=== PATIENT | male | born 1935 | race Caucasian/White ===

== ENCOUNTER 2017-01-23 10:42 | Inpatient (IN) | payer MEDICARE, BC ==
--- NOTE | ~2017-01-23 | DS ---
Discharge Summary [address] [place]. [address] NAME: KRYSTA HEARN : 33 STATUS : DIS IN PAT#: [id number] AGE: 81 ADM/REG DATE : 01/23/17 MR#: [id number] REPORT SERV DATE: 02/03/17 DICTATED BY: JR. WILSON WILLIAM JOHN DATE: 02/02/17 REPORT STATUS : Draft TRANSCRIBED BY: MODL DATE: 02/02/17 ADMISSION DATE: 01/23/2017 DISCHARGE DATE: 02/02/2017 DISCHARGE DIAGNOSES: Include: 1. Acute on chronic systolic and diastolic heart failure. 2. Dilated cardiomyopathy with biventricular failure. 3. Possible aspiration. 4. Acute bronchitis. 5. Parkinson's disease. 6. Chronic atrial fibrillation. 7. Hypoxic respiratory failure secondary to acute on chronic systolic and diastolic heart failure. OPERATIONS, PROCEDURES AND TREATMENTS: Include: 1. Chest x-ray done 01/23/2017, which showed cardiomegaly with mild failure. 2. CT of the chest done 01/24/2017, which showed bibasilar atelectasis or infiltrate possibly due to pneumonia. There was slight cardiomegaly and distended esophagus with fluid and minimal air. CT of the abdomen and pelvis showed no definite acute abnormality within the abdomen or pelvis. There were bilateral adrenal adenomas. There was calcified atherosclerosis with minimal abdominal aortic aneurysm. There was right hip prosthesis. Diffuse skeletal demineralization and minimal metallic foreign body in the lumen of the distal loop of the small bowel of uncertain significance. 3. Echocardiogram done 01/24/2017, which showed severe left ventricular dysfunction of 25% with left atrium and ventricle dilated. There was an apical akinesis and mild dyskinesis. Right ventricular size was moderately impaired. There was mild-to- moderate mitral regurgitation and aortic regurgitation. 4. Chest x-ray done 01/26/2017 showed diminished lung volumes with bibasilar mild fibrosis and/or atelectasis. 5. Chest x-ray done 01/29/2017, which showed shallow inspiration with bibasilar linear atelectasis and pulmonic vascular prominence. CONSULTING PHYSICIANS: Include Dr. Anne of Cardiology. DISCHARGE MEDICATIONS: Include: 1. Aspirin 81 mg orally daily. 2. Lipitor 80 mg orally daily. 3. Sinemet 25/100, two tablets at 0830, 1200, 1530, and 1830. 4. Coreg 6.25 mg orally twice a day. 5. Vitamin B12 1000 mcg orally daily. 6. Lasix 20 mg orally daily. 7. Guaifenesin LA 600 mg three times a day. 8. Protonix 40 mg orally daily. 9. Paxil 20 mg orally daily. 10.MiraLAX one packet daily. 11.Ramipril 5 mg daily. Discharge Summary [address] [place]. [address] NAME: KRYSTA HEARN : 33 STATUS : DIS IN PAT#: [id number] AGE: 81 ADM/REG DATE : 01/23/17 MR#: [id number] REPORT SERV DATE: 02/03/17 DICTATED BY: JR. WILSON WILLIAM JOHN DATE: 02/02/17 REPORT STATUS : Draft TRANSCRIBED BY: BAILEY DATE: 02/02/17 12.Aldactone 12.5 mg daily. 13.Coumadin per sliding scale. 14.Prednisone 30 mg orally daily through 02/03/2017, 20 mg orally daily from 02/04/2017 through 02/05/2017, 10 mg daily from 02/06/2017 through 02/07/2017. 15.Pulmicort Respules 1 mg inhaled twice a day. 16.DuoNeb 3 mL every four hours while awake. 17.Colace 100 mg twice a day as needed. HOSPITAL COURSE: The patient is an 81-year-old male presented to emergency room on 01/23/2017 because of severe weakness, cough, phlegm production, and bilateral lower extremity edema and chest congestion. According to the patient's daughter at that time, he was unable to walk periodically, be unable to lay flat. There were no fevers or chills or headache. On initial exam, his temperature was 98, heart rate was 106, respiratory rate 22, blood pressure 197/100, saturation 90% on room air. Exam was remarkable for coarse breath sounds bilaterally with decreased respiratory effort and positive cough. Initial laboratory significant for BUN of 39, creatinine 1.05. White count was normal at 7.8. INR was 3.5. Urinalysis had 40 red blood cells, but only 5 white blood cells. Chest x-ray as detailed above. EKG showed atrial fibrillation, rate of 84 without acute findings. The patient was admitted to [facility]. He had an echocardiogram which is detailed above. This represented a significant decline from prior echocardiogram and Cardiology was consulted. Upon further investigation, it appears the patient had a prior echo previous to the comparison echocardiogram with similar findings to this. Therefore, it is unclear whether this is actually a decline in function. Regardless the patient was diuresed with Lasix, he was started on MIL inhibitor and beta blockade as well as Aldactone and diuresed nicely. By discharge, the patient did not feel short of breath and was on 2-3 L of oxygen by nasal cannula. Regarding possible aspiration, the patient had a choking episode during the hospitalization. He was evaluated on 02/01/2017 by speech and language pathology and a bedside swallow evaluation was inconclusive. Therefore, a modified barium swallow was scheduled for today and assuming the patient has goals, we will plan to discharge the patient to [facility] today with modified diet as recommended. Next, regarding acute bronchitis, the patient was started on a steroid taper which he responded to well by discharge. The patient had no wheezing or crackles. Regarding Parkinson disease, the patient remains on his carbidopa and levodopa. Regarding chronic atrial fibrillation, the patient is on Coumadin. At discharge, his INR was 2.2. Regarding hypoxia, the patient underwent oxygen desaturation study, qualified for oxygen, which is detailed in the chart. The patient will be discharged to [facility] today. If the modified barium swallow is reasonable, the patient can be transported today. Discharge Summary [address] [place]. [address] NAME: KRYSTA HEARN : 33 STATUS : DIS IN PAT#: [id number] AGE: 81 ADM/REG DATE : 01/23/17 MR#: [id number] REPORT SERV DATE: 02/03/17 DICTATED BY: JR. WILSON WILLIAM JOHN DATE: 02/02/17 REPORT STATUS : Draft TRANSCRIBED BY: BAILEY DATE: 02/02/17 FOLLOWUP ISSUES: 1. Recommend speech and language pathology for further assistance. 2. Physical therapy. 3. For discharge exam and laboratory, please see daily progress note. DISCHARGE DIET: Will depend on the modified barium swallow. ACTIVITY: As tolerated. This discharge took 38 minutes for patient encounter, coordination of care and documentation. DICTATED BY: Good Wilson Jr, MD WJF/BAILEY Good Wilson Jr, MD / [id number] CC: Good Wilson Jr, MD
--- NOTE | ~2017-01-23 | HP ---
History And Physical [address] [place]. [address] NAME: KRYSTA HEARN : 33 STATUS : ADM IN [facility]#: [id number] AGE: 81 ADM/REG DATE : 01/23/17 MR#: [id number] REPORT SERV DATE: 01/23/17 DICTATED BY: ALISA OTERO DATE: 01/23/17 REPORT STATUS : Draft TRANSCRIBED BY: MODMary Kate DATE: 01/23/17 DATE OF ADMISSION: 01/23/2017 HISTORY OF PRESENT ILLNESS: This is an 81-year-old male who was brought in to [facility] emergency room by his daughter because of severe weakness, cough with some phlegm production, bilateral lower extremity edema, chest congestion. The patient unable to walk according to patient's daughter. He was periodically unable to lay flat, but there are times that he is able to lay flat. He has dementia, but his confusion was worsening. No fever. No chills. No headache. The patient is constipated for the last two weeks. Very small bowel movements according to daughter and the patient. No abdominal pain. No rash. All 14-point review of systems done and negative except what is stated in the history of present illness. PAST MEDICAL HISTORY: Very extensive. The patient has history of Parkinson disease and he saw Dr. Davila two weeks ago. Because of the concern of lower extremity swelling, Dr. Davila did a bilateral lower extremity duplex ultrasound which did not show any evidence of deep vein thrombosis, as well as the patient was already seen today by emergency room physician, Dr. Red, who gave him Lasix 40 mg and gave him intravenous Rocephin as well, and also one dose of clonidine. The patient has a past medical history of coronary artery disease, status post stent placement in the past, history of congestive heart failure with ejection fraction of 35%-40% in 2014, history of chronic systolic heart failure, history of ischemic cardiomyopathy, history of ME in 2001, advanced Parkinson disease, history of chronic pelvic fracture in 2014, history of atrial fibrillation. He was taken off Coumadin before, but then his Coumadin was restarted after he had a TIA recently at [facility]. It was decided that the patient needs to be on Coumadin per his billing auditor, Dr. Burris. The patient also was a fall risk. This was the reason the Coumadin was discontinued previously, but last time after TIA, billing auditor made the decision to restart Coumadin and the patient's daughter is aware about fall risk. They want the patient to be on Coumadin. History of pulmonary embolism in the past, depression, gastroesophageal reflux disease, elevated cholesterol, history of prostate cancer in 1992, status post surgery and radiation, history of dementia, history of Lyme disease, history of chronic urinary tract retention, history of right footdrop. PAST SURGICAL HISTORY: Includes hernia surgery, right hip surgery, basal cell carcinoma, wide resection of the right ear, PEG tube earlier in 2014. SOCIAL HISTORY: He lives with his daughter. He has two daughters. He is a since 04/2014. He ambulates with a walker along with family help. He is retired from [employer]. No tobacco abuse. No alcohol. FAMILY HISTORY: Positive for diabetes, heart disease, and COPD. ALLERGIES: NO KNOWN DRUG ALLERGIES. HOME MEDICATIONS: Include albuterol two puffs inhaled three times daily p.r.n., Lipitor 80 History And Physical [address] [address] NAME: KRYSTA HEARN : 33 STATUS : ADM IN [facility]#: [id number] AGE: 81 ADM/REG DATE : 01/23/17 MR#: [id number] REPORT SERV DATE: 01/23/17 DICTATED BY: ALISA OTERO DATE: 01/23/17 REPORT STATUS : Draft TRANSCRIBED BY: BAILEY DATE: 01/23/17 mg a day, carbidopa/levodopa two tablets p.o. four times a day, vitamin B12 at 1000 mg daily, Evangelina 180 mg a day, Lasix 20 mg a day, omeprazole 20 mg a day, paroxetine 20 mg a day, potassium chloride 10 mEq daily. Coumadin 10 mg on Monday, Monday, Monday, and 5 mg on the other days of the week. PHYSICAL EXAMINATION: GENERAL: Well-nourished, well-developed male, not in acute distress, resting quietly. VITAL SIGNS: Initially, his blood pressure was 197/107 in the emergency room, then later it became, when I saw the patient, 165/100; temperature 98; heart rate like 106 initially, then became 84; respiratory rate 22; oxygen saturation was 90 on room air. HEENT: Head, atraumatic, normocephalic. Conjunctivae clear. Pupils are equal and reactive to light and accommodation. Extraocular muscles are intact. NECK: Supple. Trachea is midline. No supraclavicular or cervical lymphadenopathy. LUNGS: Coarse breath sounds bilaterally with decreased respiratory effort and positive cough. CARDIOVASCULAR SYSTEM: Regular rate and rhythm. Point of maximal impulse not displaced. ABDOMEN: Soft, nontender, nondistended. Positive normoactive bowel sounds. No organomegaly. EXTREMITIES: No clubbing, no cyanosis. Trace edema. NEUROLOGIC: He is awake. He is alert. He is disoriented in time and place. Muscle strength is 5/5 bilaterally on upper and lower extremities. There is no cogwheel rigidity. PSYCHIATRIC: Normal mood and affect. LABORATORY RESULTS: Sodium 140, potassium 4.2, chloride 107, carbon dioxide 27, BUN 39, creatinine 1.05. Troponin 0.05. Blood sugar 127. White count 7.8, hemoglobin 13.2, hematocrit 40.7, and platelet count 245. INR 3.5, PT 34.9. Urinalysis showed large amount of blood, 40 red blood cells, and only 5 white blood cells with moderate bacteria. BNP was 2943. Chest x-ray, cardiomegaly with mild congestive heart failure pattern. EKG: EKG showed atrial fibrillation with a rate of 84, left axis deviation, inferior infarction of undetermined age. ASSESSMENT: This is an 81-year-old male with a past medical history of congestive heart failure, ejection fraction 35%-40% in 2015, history of atrial fibrillation, history of pulmonary embolism in the past, history of Parkinson disease and dementia, presented with; 1. Acute congestive heart failure exacerbation, acute on chronic systolic congestive heart failure. 2. Hypertension. 3. Hematuria. No evidence of urinary tract infection. 4. Supratherapeutic INR. 5. Cough with sputum production and chest congestion. Clinically consistent with pneumonitis versus bronchitis. 6. Prerenal azotemia with mild acute kidney injury. 7. Parkinson disease. 8. Severe weakness. 9. Constipation. No bowel movement for approximately eight to ten days. Minimal amount of stool according to the patient's daughter. History And Physical [address] [address] NAME: KRYSTA HEARN : 33 STATUS : ADM IN PAT#: [id number] AGE: 81 ADM/REG DATE : 01/23/17 MR#: [id number] REPORT SERV DATE: 01/23/17 DICTATED BY: ALISA OTERO DATE: 01/23/17 REPORT STATUS : Draft TRANSCRIBED BY: BAILEY DATE: 01/23/17 PLAN: 1. Regarding his congestive heart failure, I think it is combination of acute CHF exacerbation with pneumonitis versus bronchitis. The patient was already given Lasix 40 mg IV in the emergency room. He is feeling better. His lower extremity swelling improved, but taking into consideration, his BUN 39, creatinine 1.05, we will hold on intravenous Lasix, we will continue his home Lasix at 20 mg a day, and we will recheck his creatinine tomorrow. We will put him on fluid restriction, and if necessary, Lasix can be given tomorrow, also can be repeated tomorrow under close supervision of creatinine because he is at risk for worsening in his creatinine. Echocardiogram will be ordered as well. 2. Hematuria in the setting of supratherapeutic INR. The patient does not have any evidence of urinary tract infection. We will hold his Coumadin and we will check his PT/INR and Pharmacy to restart Coumadin when the INR will be appropriate. 3. Hypertension. Blood pressure initially was 197/107, now 160/100. We will give him hydralazine as needed for elevated blood pressure. 4. Cough with sputum production. Coarse breath sounds with some wheezing episodes. This is combination of congestive heart failure and bronchitis or possibly pneumonitis. We will do CT of the chest without contrast for further delineation if the patient has pneumonia. In the same time, we will cover him with Rocephin and azithromycin intravenously; first dose of Rocephin was already given in the emergency room. 5. Prerenal azotemia, now with mild acute kidney injury. We will monitor his creatinine, will be careful with intravenous diuretics. 6. Constipated for several days, at least for eight to ten days according to patient's daughter. We will give him MiraLAX as well as I will do a CT of the abdomen and pelvis without contrast for evaluation of other abnormalities in the abdomen as well and CT of the chest without contrast is ordered for pneumonia delineation. Procalcitonin is ordered as well as blood cultures are ordered. 7. Borderline troponin. We will monitor two more sets of troponins. Could be just demand ischemia. 8. For the weakness, we will check B12, folic acid level, and TSH. Everything was discussed with the patient and his daughter. We will put him on the fall precautions. We will put him on soft mechanical diet. MG/MODL Alisa Otero M.D. / [id number]
--- NOTE | ~2017-01-23 | IDS ---
Interim Discharge Summary [facility] [address] [place]. [address] NAME: KRYSTA HEARN : 33 STATUS : ADM IN PAT#: [id number] AGE: 81 ADM/REG DATE : 01/23/17 MR#: [id number] REPORT SERV DATE: 01/30/17 DICTATED BY: LAYLA AREVALO DATE: 01/30/17 REPORT STATUS : Draft TRANSCRIBED BY: MODL DATE: 01/30/17 ADMISSION DATE: 01/23/2017 DISCHARGE DATE: 01/30/2017 PROBLEM LIST: 1. Acute heart failure. 2. Dilated cardiomyopathy with worsening ejection fraction 25% with left and right ventricular failure. Lasix was started here in the hospitalization. We will like to continue lower dose every other day. 3. Acute bronchitis. 4. Parkinson's disease. 5. Chronic atrial fibrillation with chronic Coumadin use with a history of PE as well and therapeutic INR has been maintained. HISTORY OF PRESENT ILLNESS: This is an 81-year-old male patient, who came to the hospital with swelling and short of breath. Please see dictated H and P. HOSPITAL COURSE: He was admitted to the hospital with heart failure. Echocardiogram was obtained. Echocardiogram was showing significant decrease of the left ventricular function at ejection fraction 25% with the left atrium and ventricle are dilated, significant deterioration from two years ago. Also right ventricular function is moderately impaired as well with moderate mitral regurgitation and aortic regurgitation. The patient was treated with IV diuretics. Next day, he became very wheezy and showed shallow breathing. He was started on the bronchodilator due to the significant bronchospasm and bronchitis symptoms. His diuretics have been held off a little bit. Overall, had improvement. He still showed some issue with chest congestion. He was put on oral diuretics and then had an extra dose of IV furosemide very low dose along with bronchitis treatment. Therefore, he has recovered very well, significant improvement, and he is able to ambulate with the physical therapist today. Not complaining anything respiratory status issues. He has been tolerating all this treatment very well and however he is incontinent, so we were not able to measure his I's and O's very accurately. Knowing his heart function has been deteriorated in two years with this advanced age, informed POA and other daughter about his prognosis. They all voiced understanding. They agreed to go to the rehab on discharge and the patient selected [facility] and medically he is stabilized enough to be discharged in 24 hours with tapering dose of prednisone and torsemide 20 mg every other day with low-dose oxygen to be weaned at [facility]. EKL/MODL Layla Arevalo M.D. / [id number] CC: Interim Discharge Summary [address] [address] NAME: KRYSTA HEARN : 33 STATUS : ADM IN [facility]#: [id number] AGE: 81 ADM/REG DATE : 01/23/17 MR#: [id number] REPORT SERV DATE: 01/30/17 DICTATED BY: LAYLA AREVALO DATE: 01/30/17 REPORT STATUS : Draft TRANSCRIBED BY: MODL DATE: 01/30/17 Layla Arevalo M.D.
--- NOTE | ~2017-01-23 | CN ---
Consultation Report [facility] [address] [place]. [address] NAME: KRYSTA HEARN : 31 STATUS : ADM IN PAT#: [id number] AGE: 81 ADM/REG DATE : 01/23/17 MR#: [id number] REPORT SERV DATE: 02/01/17 DICTATED BY: SVETA ANNE DATE: 01/31/17 REPORT STATUS : Draft TRANSCRIBED BY: BAILEY DATE: 01/31/17 CARDIOLOGY CONSULTATION DATE OF CONSULTATION: INDICATIONS: Congestive heart failure, cough. HISTORY OF PRESENT ILLNESS: The patient is an 81-year-old white male, who has an underlying cardiomyopathy and is followed by Dr. Burris. He has known coronary disease and had an anterior apical IA with a 2.5 x 28 mm bare metal stent, placed in midportion of the LAD and a 3.5 x 23 mm PMS in the proximal portion of the LAD on 12/18/2009. His ejection fraction had been about at 40% confirmed with several modalities, the last in 2014. When he saw Dr. Burris on 01/12/2017, he states that he was feeling good. He lives with his daughter and the family has attempted to make sure he gets exercise on a daily basis as well as medications. Over the past week or so, he has noted increasing lower extremity edema and a cough. His daughter states she noticed some confusion, thought that he may have had a urinary tract infection. He was seen in a walk-in clinic, was given a diagnosis of bronchitis. His condition continues to decline. He was seen finally in the emergency room. In the other observation his daughter has made is that she had to adjust the head of his bed over the two nights at home due to cough. The patient is presently asymptomatic. The patient last was hospitalized on 07/05/2015 after a hip fracture. He tolerated the surgery without difficulty. The patient is somewhat more comfortable after diuresis. CURRENT HOME MEDICATIONS: Albuterol MDI two puffs three times a day, atorvastatin 80 at h.s., Carbidopa and levodopa 25/100 two tablets four times a day, cyanocobalamin 1000 per day, fexofenadine 180 p.r.n., furosemide 20 daily, omeprazole 20 a day, paroxetine 20 a day, potassium 10 per, warfarin as directed. ALLERGIES OR INTOLERANCES: None known. SOCIAL HISTORY: As mentioned, he presently lives with his daughter. He was , 04/2014. He ambulates with a lot of walker. Worked previously for [employer]. No history of tobacco or alcohol use. FAMILY HISTORY: Positive for diabetes, coronary artery disease, and COPD. PAST MEDICAL HISTORY/REVIEW OF SYSTEMS: See above for his past medical history of coronary artery disease. He has a history of advanced Parkinson's disease, chronic atrial fibrillation, and a history of a pelvic fracture in 2014. He has a history of stroke and Consultation Report [address] [id number] NAME: KRYSTA HEARN : 31 STATUS : ADM IN PAT#: [id number] AGE: 81 ADM/REG DATE : 01/23/17 MR#: [id number] REPORT SERV DATE: 02/01/17 DICTATED BY: SVETA ANNE DATE: 01/31/17 REPORT STATUS : Draft TRANSCRIBED BY: BAILEY DATE: 01/31/17 had a TIA evaluated recently at [facility], at which time, he was placed back on Coumadin. The patient is at a fall risk. He has a history of a pulmonary embolus in the past, GERD, dyslipidemia, and mild dementia. He has a history of Lyme disease and recurrent urinary tract infections. He underwent radiation and surgery for prostate cancer in 1992. He has a history of right footdrop and mild dementia. PHYSICAL EXAMINATION: VITAL SIGNS: A pleasant 81-year-old white male, blood pressure 141/71, pulse 78 and irregular, respirations 18. SKIN: No xanthelasmas. HEENT: He is normocephalic. JVD is not elevated. CHEST: Sparse crackles at the bases. CARDIAC: S1 is variable. S2 singular. There is soft S3. ABDOMEN: Slight tenderness. EXTREMITIES: With trace edema. NEUROLOGIC: Parkinsonian features as noted above. He has slight masking of his facies. There is a mild tremor. IMAGING: CT, 01/18/2011, shows an old lacunar infarct in the left basal ganglia. There is periventricular white matter changes and age-appropriate cortical atrophy. Chest CT from 12/15/2014 suggests pulmonary artery hypertension. Echocardiogram from 01/24/2017 is similar to that of 09/16/2014, at which time, his ejection fraction was also 25%. Three months later, his EF had returned towards his baseline of 40%. Current echo also showed moderate mitral and aortic regurgitation which has somewhat more prominent as well as a slightly dyskinetic apex. LABORATORY STUDIES: BUN 26, creatinine 0.89. Troponin 0.05. BNP 2943. White count 10.3, hemoglobin 13.5, platelets 232,000. INR 2.9. IMPRESSION: 1. Acute on chronic systolic heart failure with significant change in left ventricular function. Interestingly, the echocardiogram from early September 2014 is very similar to the current echocardiogram. There is an interim echo in November of 2014 which showed improvement of his left ventricular function. He has not been on an extensive heart failure regimen, and until this last week, he is relatively asymptomatic. There does not appear to be an acute ischemic cause for his change in cardiac function. 2. Chronic atrial fibrillation with a CHADS2-VASc score of 6. He is on appropriate anticoagulation therapy. 3. Parkinson syndrome. 4. Frailty with fall risk. 5. Previous history of transient ischemic attack and stroke. DISPOSITION: We will begin appropriate heart failure medications. We will monitor him closely. Continue on anticoagulation therapy. Further recommendations as his clinical Consultation Report [address] [id number] NAME: KRYSTA HEARN : 31 STATUS : ADM [facility]#: [id number] AGE: 81 ADM/REG DATE : 01/23/17 MR#: [id number] REPORT SERV DATE: 02/01/17 DICTATED BY: SVETA ANNE DATE: 01/31/17 REPORT STATUS : Draft TRANSCRIBED BY: BAILEY DATE: 01/31/17 course evolves. LAZARA/BAILEY Sveta Anne M.D. / [id number] CC: Sveta Anne M.D.
[~2017-01-23 10:42] MED LIST: ALLEGRA180 PO; ASAB PO; ASABAYER PO; CARBIDOPA/LEVODOPA; CARVEDILOL; COREG12 PO; COREG25 PO; COREG3 PO; COREG6 PO; COUMADIN3 MG PO; COUMADIN6 MG PO; CYANO1000T PO; D.O.S.100 MG PO; DSS PO; FLONASE NAS; HALF81 PO; HYDROCHLOROT25 MG PO; JANTOVEN6 MG PO; K-TABS10 MEQ PO; L-LYSINE1000 M1 OR; L20 PO; L40 PO; LEVAQUIN750 MG PO; LIPITOR10 PO; LIPITOR40 PO; LIPITOR80 MG PO; LOVENOX80 SC; MAGNESIUM OXIDE PO; MAGNESIUM PO; MAGOX4 PO; MICRO-K10 MEQ PO; Mag-Ox PO; NIACIN 500 PO; NIACIN100 PO; NITROQUICK0.4 MG SL; NITROSTAT0.4 MG SL; ORAZINC110 MG PO; PARC25-100 PO; PAX10 PO; PAX20 PO; PRAVACHOL40 MG PO; PRILO PO; PRILOSEC40 MG PO; PRIN5 PO; SEROQUEL25 PO; SEV VITAMINS PO; SIN25 PO; SPIRO25 PO; SUCR PO; VIT C/RHIPS/ OR; VITAMIN C100 MG PO; VITAMIN C1000 MG PO; VITAMIN D31000 UNIT PO; VITD PO; ZINC 50MG PO; ZINC GLUCON50 MG PO; ZINC GLUCONATE 50 MG PO; ZINC PO; ZOCOR10 PO; ZOCOR40 PO; ZYRTEC ALLGY10 MG PO
[2017-01-23 11:51] LABS: BASOPHILS 0.5 %; BASOPHILS ABSOLUTE 0.04 10/3/uL (0.0-0.16); EOSINOPHILS 0.1 %; EOSINOPHILS ABSOLUTE 0.01 10/3/uL (0.0-0.53); HEMATOCRIT 40.7 % (40.0-51.0); HEMOGLOBIN 13.2 g/dL (13.6-17.8); IMMATURE GRANULOCYTES 0.3 %; IMMATURE GRANULOCYTES ABSOLUTE 0.02 10/3/uL (0.0-0.11); LYMPHOCYTES 12.5 %; LYMPHOCYTES ABSOLUTE 0.97 10/3/uL (0.67-4.30); MANUAL DIFF NO %; MEAN CORPUS HGB CONC 32.4 g/dL (32.0-36.0); MEAN CORPUSCULAR HEMOGLOB 30.6 pg (26.0-34.0); MEAN CORPUSCULAR VOLUME 94.2 fL (80-100); MEAN PLATELET VOLUME 12.7 fL (9.2-13.0); MONOCYTES 8.5 %; MONOCYTES ABSOLUTE 0.66 10/3/uL (0.21-1.20); NEUTROPHILS 78.1 %; NEUTROPHILS ABSOLUTE 6.08 10/3/uL (2.02-8.40); PLATELET COUNT 245 10/3/uL (150-400); RBC DISTRIBUTION WIDTH 16.3 % (12.0-16.0); RED CELL COUNT 4.32 10/6/uL (4.7-6.1); WHITE BLOOD CELLS 7.8 10/3/uL (4.5-10.5)
[2017-01-23 11:59] LABS: INTERNATIONAL NORMAL RATI 3.5 UNITS (-); PARTIAL THROMBO TIME 39.2 SEC (22.5-37.2)
[2017-01-23 12:01] LABS: PROTIME (NOT ORD) 34.9 SEC (12.0-14.5)
[2017-01-23 12:08] LABS: BUN (BLOOD UREA NITROGEN) 39 MG/DL (6-23); CALCIUM, SERUM 8.8 MG/DL (8.5-10.4); CHEST PAIN PROFILE TAT 0 Hrs 00 Mins; CHLORIDE, SERUM 107 MMOL/L (96-112); CO2 (CARBON DIOXIDE) 27 MMOL/L (24-34); CREATININE 1.05 MG/DL (0.70-1.30); GFR AFRICAN AMERICAN 76 ML/MIN (>=60); GFR NON AFRICAN AMERICAN 65 ML/MIN (>=60); GLUCOSE, SERUM 127 MG/DL (60-99); POTASSIUM, SERUM 4.2 MMOL/L (3.5-5.3); SODIUM, SERUM 140 MMOL/L (135-148); TROPONIN I 0.05 NG/ML (<0.05)
[2017-01-23 12:23] LABS: ASCORBIC ACID (UR NOT ORDER) NEG (NEG); BILIRUBIN, URINE NEGATIVE (NEG); ER URINALYSIS TAT 0 Hrs 10 Mins; KETONE, URINE NEGATIVE (NEG); LEUKOCYTE ESTERASE(NOT OR NEG (NEG); NITRITE (URINE) NEG (NEG); WBC (NOT ORDERED) (RFLEX) 5 (0-5)
[2017-01-23] MEDS ORDERED: LIPITOR80 MG PO (13:08)
[2017-01-23] MEDS ORDERED: SIN25 PO (13:09)
[2017-01-23] MEDS ORDERED: COUMADIN10 MG PO (13:09)
[2017-01-23] MEDS ORDERED: C5 PO (13:09)
[2017-01-23] MEDS ORDERED: PAX20 PO (13:10)
[2017-01-23] MEDS ORDERED: PRILO PO (13:10)
[2017-01-23] MEDS ORDERED: CYANO1000T PO (13:11)
[2017-01-23] MEDS ORDERED: K-TABS10 MEQ PO (13:11)
[2017-01-23] MEDS ORDERED: PROAIR HFA INH (13:11)
[2017-01-23] MEDS ORDERED: ALLEGRA180 PO (13:12)
[2017-01-23] MEDS ORDERED: L20 PO (13:12)
[2017-01-23 19:26] LABS: PROCALCITONIN 0.05 ng/mL (<0.5)
[2017-01-23 20:00] LABS: FOLATE 31.3 NG/ML (>5.2); TROPONIN I 0.05 NG/ML (<0.05); ULTRASENSITIVE TSH 1.03 MCIU/ML (0.358-3.740)
[2017-01-24 05:54] LABS: BASOPHILS 0.2 %; BASOPHILS ABSOLUTE 0.02 10/3/uL (0.0-0.16); EOSINOPHILS 0.1 %; EOSINOPHILS ABSOLUTE 0.01 10/3/uL (0.0-0.53); HEMATOCRIT 38.1 % (40.0-51.0); HEMOGLOBIN 12.5 g/dL (13.6-17.8); LYMPHOCYTES 6.2 %; LYMPHOCYTES ABSOLUTE 0.51 10/3/uL (0.67-4.30); MEAN CORPUS HGB CONC 32.8 g/dL (32.0-36.0); MEAN CORPUSCULAR HEMOGLOB 30.6 pg (26.0-34.0); MEAN CORPUSCULAR VOLUME 93.2 fL (80-100); MEAN PLATELET VOLUME 12.2 fL (9.2-13.0); MONOCYTES ABSOLUTE 1.24 10/3/uL (0.21-1.20); NEUTROPHILS 78.5 %; PLATELET COUNT 216 10/3/uL (150-400); RBC DISTRIBUTION WIDTH 16.3 % (12.0-16.0); RED CELL COUNT 4.09 10/6/uL (4.7-6.1); WHITE BLOOD CELLS 8.3 10/3/uL (4.5-10.5)
[2017-01-24 05:59] LABS: A/G RATIO 1.3 (0.7-1.9); ALBUMIN 3.2 G/DL (3.5-5.0); ALKALINE PHOSPHATASE 93 U/L (45-117); BUN (BLOOD UREA NITROGEN) 33 MG/DL (6-23); CALCIUM, SERUM 8.6 MG/DL (8.5-10.4); CHLORIDE, SERUM 106 MMOL/L (96-112); CO2 (CARBON DIOXIDE) 29 MMOL/L (24-34); CREATININE 0.82 MG/DL (0.70-1.30); GFR AFRICAN AMERICAN 95 ML/MIN (>=60); GFR NON AFRICAN AMERICAN 82 ML/MIN (>=60); GLOBULIN 2.5 G/DL (2.5-4.1); GLUCOSE, SERUM 100 MG/DL (60-99); POTASSIUM, SERUM 3.5 MMOL/L (3.5-5.3); SGOT(AST) 48 U/L (5-40); SGPT(ALT) 16 U/L (5-65); SODIUM, SERUM 143 MMOL/L (135-148); TOTAL BILIRUBIN 1.5 MG/DL (0-1.2); TOTAL PROTEIN 5.7 G/DL (6.0-8.5); TROPONIN I 0.05 NG/ML (<0.05)
[2017-01-24 06:00] LABS: INTERNATIONAL NORMAL RATI 2.7 UNITS (-)
[2017-01-24 06:02] LABS: PROTIME (NOT ORD) 28.2 SEC (12.0-14.5)
[2017-01-24 06:10] LABS: MANUAL DIFF NO %
[2017-01-25 04:14] LABS: BASOPHILS 0.3 %; BASOPHILS ABSOLUTE 0.02 10/3/uL (0.0-0.16); EOSINOPHILS 1.3 %; HEMOGLOBIN 12.4 g/dL (13.6-17.8); IMMATURE GRANULOCYTES 0.3 %; IMMATURE GRANULOCYTES ABSOLUTE 0.02 10/3/uL (0.0-0.11); LYMPHOCYTES 5.4 %; LYMPHOCYTES ABSOLUTE 0.42 10/3/uL (0.67-4.30); MANUAL DIFF NO %; MEAN CORPUS HGB CONC 32.6 g/dL (32.0-36.0); MEAN CORPUSCULAR HEMOGLOB 30.5 pg (26.0-34.0); MEAN CORPUSCULAR VOLUME 93.6 fL (80-100); MEAN PLATELET VOLUME 12.3 fL (9.2-13.0); MONOCYTES 11.5 %; NEUTROPHILS 81.2 %; NEUTROPHILS ABSOLUTE 6.35 10/3/uL (2.02-8.40); PLATELET COUNT 227 10/3/uL (150-400); RED CELL COUNT 4.06 10/6/uL (4.7-6.1); WHITE BLOOD CELLS 7.8 10/3/uL (4.5-10.5)
[2017-01-25 04:24] LABS: INTERNATIONAL NORMAL RATI 2.2 UNITS (-); PROTIME (NOT ORD) 24.4 SEC (12.0-14.5)
[2017-01-25 04:31] LABS: A/G RATIO 1.2 (0.7-1.9); ALBUMIN 3.2 G/DL (3.5-5.0); ALKALINE PHOSPHATASE 93 U/L (45-117); CALCIUM, SERUM 8.6 MG/DL (8.5-10.4); CHLORIDE, SERUM 104 MMOL/L (96-112); CO2 (CARBON DIOXIDE) 30 MMOL/L (24-34); CREATININE 0.82 MG/DL (0.70-1.30); GFR AFRICAN AMERICAN 95 ML/MIN (>=60); GFR NON AFRICAN AMERICAN 82 ML/MIN (>=60); GLOBULIN 2.6 G/DL (2.5-4.1); GLUCOSE, SERUM 115 MG/DL (60-99); POTASSIUM, SERUM 4.2 MMOL/L (3.5-5.3); SGOT(AST) 39 U/L (5-40); SGPT(ALT) 30 U/L (5-65); SODIUM, SERUM 140 MMOL/L (135-148); TOTAL BILIRUBIN 1.2 MG/DL (0-1.2); TOTAL PROTEIN 5.8 G/DL (6.0-8.5)
[2017-01-25 04:35] LABS: BUN (BLOOD UREA NITROGEN) 29 MG/DL (6-23)
[2017-01-26 04:34] LABS: BASOPHILS 0.2 %; BASOPHILS ABSOLUTE 0.02 10/3/uL (0.0-0.16); EOSINOPHILS 2.2 %; EOSINOPHILS ABSOLUTE 0.19 10/3/uL (0.0-0.53); HEMATOCRIT 38.4 % (40.0-51.0); HEMOGLOBIN 12.4 g/dL (13.6-17.8); IMMATURE GRANULOCYTES 0.2 %; IMMATURE GRANULOCYTES ABSOLUTE 0.02 10/3/uL (0.0-0.11); LYMPHOCYTES 5.4 %; LYMPHOCYTES ABSOLUTE 0.47 10/3/uL (0.67-4.30); MEAN CORPUS HGB CONC 32.3 g/dL (32.0-36.0); MEAN CORPUSCULAR HEMOGLOB 30.7 pg (26.0-34.0); MEAN PLATELET VOLUME 11.7 fL (9.2-13.0); MONOCYTES 12.5 %; MONOCYTES ABSOLUTE 1.09 10/3/uL (0.21-1.20); NEUTROPHILS 79.5 %; NEUTROPHILS ABSOLUTE 6.91 10/3/uL (2.02-8.40); PLATELET COUNT 201 10/3/uL (150-400); RED CELL COUNT 4.04 10/6/uL (4.7-6.1); WHITE BLOOD CELLS 8.7 10/3/uL (4.5-10.5)
[2017-01-26 04:39] LABS: MANUAL DIFF NO %
[2017-01-26 04:47] LABS: PROTIME (NOT ORD) 22.4 SEC (12.0-14.5)
[2017-01-26 04:51] LABS: A/G RATIO 1.1 (0.7-1.9); ALBUMIN 3.1 G/DL (3.5-5.0); ALKALINE PHOSPHATASE 99 U/L (45-117); BUN (BLOOD UREA NITROGEN) 26 MG/DL (6-23); CALCIUM, SERUM 8.8 MG/DL (8.5-10.4); CHLORIDE, SERUM 103 MMOL/L (96-112); CO2 (CARBON DIOXIDE) 29 MMOL/L (24-34); CREATININE 0.73 MG/DL (0.70-1.30); GFR AFRICAN AMERICAN 99 ML/MIN (>=60); GFR NON AFRICAN AMERICAN 86 ML/MIN (>=60); GLOBULIN 2.8 G/DL (2.5-4.1); GLUCOSE, SERUM 104 MG/DL (60-99); POTASSIUM, SERUM 4.9 MMOL/L (3.5-5.3); SGOT(AST) 31 U/L (5-40); SGPT(ALT) 23 U/L (5-65); SODIUM, SERUM 137 MMOL/L (135-148); TOTAL PROTEIN 5.9 G/DL (6.0-8.5)
[2017-01-27 04:14] LABS: BASOPHILS 0 %; EOSINOPHILS 0 %; HEMATOCRIT 38.7 % (40.0-51.0); HEMOGLOBIN 12.5 g/dL (13.6-17.8); IMMATURE GRANULOCYTES 0.1 %; IMMATURE GRANULOCYTES ABSOLUTE 0.01 10/3/uL (0.0-0.11); LYMPHOCYTES 3.2 %; LYMPHOCYTES ABSOLUTE 0.25 10/3/uL (0.67-4.30); MEAN CORPUS HGB CONC 32.3 g/dL (32.0-36.0); MEAN CORPUSCULAR HEMOGLOB 30.8 pg (26.0-34.0); MEAN CORPUSCULAR VOLUME 95.3 fL (80-100); MEAN PLATELET VOLUME 12.2 fL (9.2-13.0); MONOCYTES 8.6 %; MONOCYTES ABSOLUTE 0.68 10/3/uL (0.21-1.20); NEUTROPHILS 88.1 %; NEUTROPHILS ABSOLUTE 6.99 10/3/uL (2.02-8.40); PLATELET COUNT 230 10/3/uL (150-400); RBC DISTRIBUTION WIDTH 15.8 % (12.0-16.0); RED CELL COUNT 4.06 10/6/uL (4.7-6.1); WHITE BLOOD CELLS 7.9 10/3/uL (4.5-10.5)
[2017-01-27 04:16] LABS: MANUAL DIFF NO %
[2017-01-27 04:21] LABS: INTERNATIONAL NORMAL RATI 2.1 UNITS (-); PROTIME (NOT ORD) 23.3 SEC (12.0-14.5)
[2017-01-27 04:31] LABS: CHLORIDE, SERUM 105 MMOL/L (96-112); CO2 (CARBON DIOXIDE) 32 MMOL/L (24-34); CREATININE 0.76 MG/DL (0.70-1.30); GFR AFRICAN AMERICAN 98 ML/MIN (>=60); GFR NON AFRICAN AMERICAN 84 ML/MIN (>=60); SODIUM, SERUM 139 MMOL/L (135-148)
[2017-01-27 04:32] LABS: BUN (BLOOD UREA NITROGEN) 21 MG/DL (6-23); GLUCOSE, SERUM 137 MG/DL (60-99)
[2017-01-28 05:01] LABS: INTERNATIONAL NORMAL RATI 2.4 UNITS (-); PROTIME (NOT ORD) 25.5 SEC (12.0-14.5)
[2017-01-29 05:07] LABS: BASOPHILS 0 %; EOSINOPHILS 0 %; HEMATOCRIT 41.9 % (40.0-51.0); HEMOGLOBIN 13.5 g/dL (13.6-17.8); IMMATURE GRANULOCYTES 0.2 %; IMMATURE GRANULOCYTES ABSOLUTE 0.02 10/3/uL (0.0-0.11); LYMPHOCYTES 3.4 %; LYMPHOCYTES ABSOLUTE 0.35 10/3/uL (0.67-4.30); MEAN CORPUS HGB CONC 32.2 g/dL (32.0-36.0); MEAN CORPUSCULAR HEMOGLOB 30.5 pg (26.0-34.0); MEAN CORPUSCULAR VOLUME 94.8 fL (80-100); MONOCYTES 2.9 %; NEUTROPHILS 93.5 %; NEUTROPHILS ABSOLUTE 9.63 10/3/uL (2.02-8.40); PLATELET COUNT 237 10/3/uL (150-400); RBC DISTRIBUTION WIDTH 15.6 % (12.0-16.0); RED CELL COUNT 4.42 10/6/uL (4.7-6.1); WHITE BLOOD CELLS 10.3 10/3/uL (4.5-10.5)
[2017-01-29 05:09] LABS: MANUAL DIFF NO %
[2017-01-29 05:15] LABS: INTERNATIONAL NORMAL RATI 2.3 UNITS (-); PROTIME (NOT ORD) 24.8 SEC (12.0-14.5)
[2017-01-29 05:23] LABS: BUN (BLOOD UREA NITROGEN) 22 MG/DL (6-23); CALCIUM, SERUM 9.3 MG/DL (8.5-10.4); CHLORIDE, SERUM 105 MMOL/L (96-112); CO2 (CARBON DIOXIDE) 26 MMOL/L (24-34); CREATININE 0.64 MG/DL (0.70-1.30); GFR AFRICAN AMERICAN 105 ML/MIN (>=60); GFR NON AFRICAN AMERICAN 91 ML/MIN (>=60); GLUCOSE, SERUM 141 MG/DL (60-99); POTASSIUM, SERUM 5.5 MMOL/L (3.5-5.3); SODIUM, SERUM 137 MMOL/L (135-148)
[2017-01-30 05:25] LABS: INTERNATIONAL NORMAL RATI 2.7 UNITS (-); PROTIME (NOT ORD) 28.7 SEC (12.0-14.5)
[2017-01-30 05:44] LABS: CALCIUM, SERUM 9.1 MG/DL (8.5-10.4); CHLORIDE, SERUM 102 MMOL/L (96-112); CO2 (CARBON DIOXIDE) 29 MMOL/L (24-34); CREATININE 0.89 MG/DL (0.70-1.30); GFR AFRICAN AMERICAN 92 ML/MIN (>=60); GFR NON AFRICAN AMERICAN 79 ML/MIN (>=60); GLUCOSE, SERUM 147 MG/DL (60-99); POTASSIUM, SERUM 4.6 MMOL/L (3.5-5.3); SODIUM, SERUM 138 MMOL/L (135-148)
[2017-01-30 05:46] LABS: BUN (BLOOD UREA NITROGEN) 26 MG/DL (6-23)
[2017-01-31 04:54] LABS: INTERNATIONAL NORMAL RATI 2.9 UNITS (-); PROTIME (NOT ORD) 30.1 SEC (12.0-14.5)
[2017-02-01 05:03] LABS: INTERNATIONAL NORMAL RATI 2.5 UNITS (-)
[2017-02-01 05:10] LABS: BUN (BLOOD UREA NITROGEN) 29 MG/DL (6-23); CALCIUM, SERUM 9.1 MG/DL (8.5-10.4); CHLORIDE, SERUM 103 MMOL/L (96-112); CO2 (CARBON DIOXIDE) 31 MMOL/L (24-34); CREATININE 0.85 MG/DL (0.70-1.30); GFR AFRICAN AMERICAN 93 ML/MIN (>=60); GFR NON AFRICAN AMERICAN 81 ML/MIN (>=60); POTASSIUM, SERUM 4.8 MMOL/L (3.5-5.3); SODIUM, SERUM 139 MMOL/L (135-148)
[2017-02-01 05:19] LABS: GLUCOSE, SERUM 103 MG/DL (60-99)
[2017-02-02 06:08] LABS: INTERNATIONAL NORMAL RATI 2.2 UNITS (-); PROTIME (NOT ORD) 24.2 SEC (12.0-14.5)
[2017-02-02 06:13] LABS: BUN (BLOOD UREA NITROGEN) 30 MG/DL (6-23); CALCIUM, SERUM 8.6 MG/DL (8.5-10.4); CHLORIDE, SERUM 102 MMOL/L (96-112); CO2 (CARBON DIOXIDE) 32 MMOL/L (24-34); CREATININE 0.83 MG/DL (0.70-1.30); GFR AFRICAN AMERICAN 94 ML/MIN (>=60); GFR NON AFRICAN AMERICAN 81 ML/MIN (>=60); GLUCOSE, SERUM 90 MG/DL (60-99); POTASSIUM, SERUM 4.9 MMOL/L (3.5-5.3); SODIUM, SERUM 139 MMOL/L (135-148)
== END 2017-02-02 13:26 | DRG 291 ==
LOC: ER 10:42 → 5NO 15:59
PROVIDERS: Emergency Medicine; Hospitalist; Internal Medicine; Internal Medicine Cardiovascular Disease
DX: I11.0 Hypertensive heart disease with heart failure (principal); J96.91 Respiratory failure, unspecified with hypoxia; N17.9 Acute kidney failure, unspecified; G20 Parkinson's disease; I42.0 Dilated cardiomyopathy; J20.9 Acute bronchitis, unspecified; R31.9 Hematuria, unspecified; I50.23 Acute on chronic systolic (congestive) heart failure; Z79.51 Long term (current) use of inhaled steroids; Z79.01 Long term (current) use of anticoagulants; I48.2 Chronic atrial fibrillation; I08.0 Rheumatic disorders of both mitral and aortic valves; R54 Age-related physical debility; Z91.81 History of falling; Z86.73 Personal history of transient ischemic attack (TIA), and cerebral infarction without residual deficits
CPT/HCPCS: 71010; 71250; 74176; 74230; 80048; 80053; 81001; 82550; 82607; 82746; 82962; 83735; 83880; 84145; 84443; 84484; 85025; 85610; 85730; 87040; 92610-GN; 92611-GN; 93005; 94640; 96374; 97110-GP; 97116-GP; 97162-GP; 97530-GP; 99291; A9270-GY; C8929; G8978-CK-GP; G8979-CJ-GP; G8996-CK-GN; G8997-CK-GN; G8998-CK-GN; J0360; J0456; J1940; J2920; J2930; Q9957